=== PATIENT | male | born 1975 | race Caucasian/White ===

== ENCOUNTER 2017-08-09 12:16 | Emergency (ER) | payer BC, OTHER ==
[~2017-08-09] VITALS: Ht 182.9 cm; Wt 120.4 kg
[2017-08-09 12:25] VITALS: BP 145/67
[2017-08-09] MEDS ORDERED: LISI-542 PO (12:37)
[2017-08-09] MEDS ORDERED: INSULADS INJ (12:37)
[2017-08-09] MEDS ORDERED: HUMA100I3 SC (12:37)
[2017-08-09] MEDS ORDERED: PERCOCET 5MG/325MG TAB PO ONE (13:00)
--- NOTE | 2017-08-09 13:47 | REP ---
AP PELVIS AND RIGHT HIP: Three views. HISTORY: Injury in a fall. FINDINGS: The bony pelvic ring is intact. No pelvic or hip fracture is seen. Visualized bowel gas pattern is unremarkable flank stripes are intact. AP and frog-leg view show smooth rounded femoral head and intact hip joint space. IMPRESSION: Negative right hip and AP pelvis views. Signed by Viktor Stoll MD 08/09/2017 03:03 P
--- NOTE | 2017-08-09 13:49 | REP ---
RIGHT ELBOW SERIES: Four views of the right elbow performed. There is no acute fracture or dislocation. There is mild spurring of the olecranon and coronoid process. I do not see a significant joint effusion. IMPRESSION: No evidence of acute fracture or dislocation. Signed by Qasim Morrissey MD 08/11/2017 08:57 A
[2017-08-09] MEDS ORDERED: PERC5TAB12 PO (14:04)
== END 2017-08-09 14:15 | disposition home or self-care (01) ==
LOC: EDBD 12:16 → M ED 12:16
DX: S73.101A Unspecified sprain of right hip, initial encounter (principal); S51.011A Laceration without foreign body of right elbow, initial encounter; W00.0XXA Fall on same level due to ice and snow, initial encounter; Y92.89 Other specified places as the place of occurrence of the external cause; Y93.89 Activity, other specified; Y99.8 Other external cause status; I10 Essential (primary) hypertension; E11.9 Type 2 diabetes mellitus without complications; Z79.4 Long term (current) use of insulin